=== PATIENT | male | born 1945 | race African-American/Black ===

== ENCOUNTER 2017-05-30 10:32 | Emergency (ER) | payer MEDICARE, OTHER ==
[~2017-05-30] VITALS: Ht 180.3 cm; Wt 87.0 kg
[2017-05-30 10:33] VITALS: BP 193/77; PULSE 84; RESP 28; TEMP 98.1; O2SAT 99
[2017-05-30] MEDS ORDERED: CALC1CAP PO (10:43)
[2017-05-30] MEDS ORDERED: HYDR-3801 PO (10:43)
[2017-05-30] MEDS ORDERED: AMLO10TA2 PO (10:45)
[2017-05-30] MEDS ORDERED: SODIUM CHLORIDE 0.9% FLUSH 10 ML FLUSH IVF PRN (11:00)
[2017-05-30] MEDS ORDERED: LORazepam 2 MG/ML VIAL IV PUSH ONE (11:00)
[2017-05-30 11:02] VITALS: O2SAT 99
[2017-05-30 11:06] VITALS: O2SAT 100
--- NOTE | 2017-05-30 11:30 | PD ---
HPI . Dyspnea Chief Complaint: Respiratory Distress Time Seen by Provider: 10:56 Travel History International Travel<30 days: No Contact w/Intl Traveler<30days: No Traveled to known affect area: No History of Present Illness HPI This patient presents with the chief complaint of dyspnea. Onset of symptoms was last night. He has not had a cough or fever. He denies chest pain. He has a history of renal failure and is on peritoneal dialysis. He has been compliant with this. He has not missed any treatments. The patient has not noted any exacerbating or relieving factors. His dyspnea is severe. Pertinent social history is that this patient's son just about 5 days ago. The patient and his for intake down dealing with the son's recent . [facility] Past Medical History Cancer: Yes Dialysis: Yes Hypertension: Yes Renal Failure: Yes Social History Alcohol Use: No Tobacco Use: No Substance Use: No Allergies-Medications (Allergen,Severity, Reaction): Coded Allergies: No Known Allergies (Unverified , 05/30/17) Reported Meds & Prescriptions Reported Meds & Active Scripts Active Reported Amlodipine (Amlodipine Besylate) 10 Mg Tab 10 Mg PO DAILY Calcium Acetate (Phosphate Binder) 667 Mg Cap 667 Mg PO TID Hydralazine (Hydralazine HCl) 100 Mg Tab 100 Mg PO TID Take with meals Review of Systems Except as stated in HPI: all other systems reviewed are Neg General / Constitutional: No: Fever, Chills Cardiovascular: No: Chest Pain or Discomfort Respiratory: Positive: Shortness of Breath Gastrointestinal: No: Nausea, Vomiting, Diarrhea Psychiatric: No: Anxiety, Depression Physical Exam Narrative GENERAL: The patient is awake and alert. He is on a nonrebreather mask. He is deferring questions to his . SKIN: warm/dry. AV fistula in the left upper extremity. HEAD: Atraumatic. Normocephalic. EYES: Pupils equal and round. No scleral icterus. No injection or drainage. Conjunctiva are pink. ENT: No nasal bleeding or discharge. Mucous membranes pink and moist. NECK: Trachea midline. Full range of motion. CARDIOVASCULAR: Regular rate and rhythm. Heart sounds are normal. RESPIRATORY: No accessory muscle use. Clear to auscultation. Breath sounds equal bilaterally. His initial room air saturations were 97%. GASTROINTESTINAL: Abdomen soft. Nontender. Nondistended. He has a peritoneal dialysis catheter in his right abdomen. MUSCULOSKELETAL: No obvious deformities. No edema. NEUROLOGICAL: Awake and alert. No obvious cranial nerve deficits. Motor grossly within normal limits. Normal speech. PSYCHIATRIC: Appropriate mood and affect; insight and judgment normal. Data Data Last Documented VS Vital Signs Date Time Temp Pulse Resp B/P (MAP) Pulse Ox O2 Delivery O2 Flow Rate FiO2 05/30/17 16:08 109 20 155/72 (99) 97 Room Air 05/30/17 15:19 4.00 05/30/17 11:02 100 05/30/17 10:33 98.1 Orders Orders Vascular Access Team Consult/P PRN (05/30/17 10:43) Vascular Poc Ultrasound (05/30/17 ) Electrocardiogram (05/30/17 ) Complete Blood Count With Diff (05/30/17 10:56) Basic Metabolic Panel (Bmp) (05/30/17 10:56) B-Type Natriuretic Peptide (05/30/17 10:56) D-Dimer (05/30/17 10:56) Ckmb (Isoenzyme) Profile (05/30/17 10:56) Troponin I (05/30/17 10:56) Iv Access Insert/Monitor (05/30/17 10:56) Ecg Monitoring (05/30/17 10:56) Oximetry (05/30/17 10:56) Oxygen Administration (05/30/17 10:56) Chest, Single Ap (05/30/17 10:56) Sodium Chloride 0.9% Flush (Ns Flush) (05/30/17 11:00) Lorazepam Inj (Ativan Inj) (05/30/17 11:00) Resp Request For Service (05/30/17 ) Ct Pulmonary Angiogram (05/30/17 12:33) Prothrombin Time / Inr (Pt) (05/30/17 12:36) Act Partial Throm Time (Ptt) (05/30/17 12:36) Morphine Inj (Morphine Inj) (05/30/17 12:45) Vascular Access Team Consult/P PRN (05/30/17 13:52) Vascular Poc Ultrasound (05/30/17 ) Morphine Inj (Morphine Inj) (05/30/17 15:15) Labs Laboratory Tests Test 05/30/17 11:00 White Blood Count 20.1 TH/MM3 Red Blood Count 2.79 MIL/MM3 Hemoglobin 8.4 GM/DL Hematocrit 24.7 % Mean Corpuscular Volume 88.6 FL Mean Corpuscular Hemoglobin 30.1 PG Mean Corpuscular Hemoglobin Concent 34.0 % Red Cell Distribution Width 17.1 % Platelet Count 311 TH/MM3 Mean Platelet Volume 7.4 FL Neutrophils (%) (Auto) 73.2 % Lymphocytes (%) (Auto) 7.3 % Monocytes (%) (Auto) 19.3 % Eosinophils (%) (Auto) 0.0 % Basophils (%) (Auto) 0.2 % Neutrophils # (Auto) 14.7 TH/MM3 Lymphocytes # (Auto) 1.5 TH/MM3 Monocytes # (Auto) 3.9 TH/MM3 Eosinophils # (Auto) 0.0 TH/MM3 Basophils # (Auto) 0.0 TH/MM3 CBC Comment AUTO DIFF Differential Comment AUTO DIFF CONFIRMED D-Dimer Quantitative (PE/DVT) 3.98 MG/L FEU Blood Urea Nitrogen 71 MG/DL Creatinine 19.60 MG/DL Random Glucose 258 MG/DL Calcium Level 7.8 MG/DL Sodium Level 133 MEQ/L Potassium Level 3.9 MEQ/L Chloride Level 94 MEQ/L Carbon Dioxide Level 22.5 MEQ/L Anion Gap 17 MEQ/L Estimat Glomerular Filtration Rate 2 ML/MIN Total Creatine Kinase 97 U/L Troponin I 0.05 NG/ML B-Type Natriuretic Peptide 680 PG/ML [facility] Medical Decision Making Medical Screen Exam Complete: Yes Emergency Medical Condition: Yes Interpretation(s) EKG shows a sinus rhythm with no acute ischemic change. Differential Diagnosis Differential diagnosis of dyspnea includes but is not limited to congestive heart failure, pneumonia, wheezing, pneumothorax, pulmonary embolism Narrative Course This patient presents with a chief complaint of dyspnea. His lungs are clear. His sats are 97% on room air. I suspect an anxiety reaction secondary to the recent of his son. Last Impressions Chest X-Ray 05/30/17 1056 Signed Impressions: Service Date/Time: April 11:18 - CONCLUSION: No acute disease. Jaret Blanco Jr., MD The chest x-ray was independently viewed by me. CBC Diagram 05/30/17 11:00 D-dimer=3.98. A CT for PE has been ordered. This patient's creatinine is very high that he does peritoneal dialysis daily. His CT for PE should not be a problem. BMP Diagram 05/30/17 11:00 Calcium Level 7.[address] for PE has not been possible. Vascular access has placed 2 IVs and both have failed. The IV dye has infiltrated. In the meantime, the patient and his family are very anxious to leave. They have arrangements to attend to. The patient reports that he is feeling much better. He is off of oxygen and continues to have oxygen saturation of 97% on room air. He has been hemodynamically stable. He has Y further reports that he has been on heparin and Coumadin in the past and that they have stopped that because of bleeding issues. I feel that this patient is safe for discharge. Diagnosis Primary Impression: Dyspnea Qualified Codes: R06.00 - Dyspnea, unspecified Additional Impression: Elevated d-dimer Disposition: 01 DISCHARGE HOME Condition: Stable Yamileth Garsia MD May 30, 2017 11:30
[2017-05-30 11:42] LABS: AUTOMATED NEUTROPHIL # 14.7 TH/MM3 (1.8-7.7); BASOPHIL % 0.2 % (0.0-2.0); BICARBONATE 22.5 MEQ/L (21.0-32.0); HEMATOCRIT 24.7 % (39.0-51.0); LYMPH % 7.3 % (9.0-44.0); LYMPHOCYTE # 1.5 TH/MM3 (1.0-4.8); MEAN CELL VOLUME 88.6 FL (80.0-100.0); MEAN CORPUSCULAR HEMOGLOBIN 30.1 PG (27.0-34.0); MONO % 19.3 % (0.0-8.0); NEUT % 73.2 % (16.0-70.0); PLATELET COUNT 311 TH/MM3 (150-450); POTASSIUM 3.9 MEQ/L (3.5-5.1); RED BLOOD COUNT 2.79 MIL/MM3 (4.50-5.90); RED CELL DISTRIBUTION WIDTH 17.1 % (11.6-17.2); WHITE BLOOD COUNT 20.1 TH/MM3 (4.0-11.0)
--- NOTE | 2017-05-30 11:53 | RADRPT ---
EXAM DATE/TIME: 05/30/2017 11:18 [place] COMPARISON: No previous studies available for comparison. INDICATIONS : Shortness of breath. MEDICAL HISTORY : Hypertension. SURGICAL HISTORY : None. ENCOUNTER: Initial ACUITY: 2 days PAIN SCORE: 0/10 LOCATION: Bilateral chest FINDINGS: A single view of the chest demonstrates the lungs to be symmetrically aerated without evidence of mas s, infiltrate or effusion. The cardiomediastinal contours are unremarkable. Osseous structures are intact. CONCLUSION: No acute disease. Jaret Blanco Jr., MD on May 30, 2017 at 11:51 Board Certified Radiologist. This report was verified electronically.
[2017-05-30 12:34] LABS: HEMO FLAGS AUTO DIFF
[2017-05-30 12:35] LABS: SCAN/DIFF AUTO DIFF CONFIRMED
[2017-05-30] MEDS ORDERED: MORPHINE SULFATE 4 MG/ML INJ IV PUSH ONE ×2 (12:45→15:15)
[2017-05-30 13:58] VITALS: BP 191/84; PULSE 84; RESP 18; O2SAT 100
[2017-05-30 15:19] VITALS: BP 164/82; PULSE 87; RESP 18; O2SAT 98
[2017-05-30 16:08] VITALS: BP 155/72; PULSE 109; RESP 20; O2SAT 97
--- NOTE | 2017-05-30 17:41 | EKG ---
Date Performed: 05/30/2017 Time Performed: 10:42:19 PTAGE: 71 years EKG: Sinus rhythm WITH FREQUENT SUPRAVENTRICULAR PREMATURE COMPLEXES POSSIBLE LEFT ATRIAL ENLARGEMENT NONSPECIFIC ST & T-WAVE ABNORMALITY ABNORMAL RHYTHM ECG NO PREVIOUS TRACING DOCTOR: Rishi Webster Interpretating Date/Time 05/30/2017 17:37:16
== END 2017-05-30 17:13 | disposition home or self-care (01) ==
LOC: NEPE 10:32
DX: R06.00 Dyspnea, unspecified (principal); R78.89 Finding of other specified substances, not normally found in blood; I12.0 Hypertensive chronic kidney disease with stage 5 chronic kidney disease or end stage renal disease; N18.6 End stage renal disease; Z99.2 Dependence on renal dialysis
CPT/HCPCS: 71010; 80048; 82550; 83880; 84484; 85025; 85379; 93005; 96374; 96375; 96376; 99285; J2060; J2270